=== PATIENT | male | born 1995 | race Caucasian/White ===

== ENCOUNTER 2020-11-21 09:45 | Emergency (ER) | payer OTHER, SELFPAY ==
[2020-11-21 09:51] VITALS: BP 147/86; PULSE 72; RESP 14; TEMP 36.5; O2SAT 98; BMI 43.8
--- NOTE | 2020-11-21 10:00 | XR_ITS ---
WS: [id number] Portable AP upright chest, 11/21/2020 Clinical Data: cp/sob Comparison: None. Findings: No nodules, masses or effusions are seen. The heart is normal. The pulmonary vascularity is not increased. No pneumonia or pneumothorax is seen. Monitor leads are on the chest wall. XR/XR chest 1V portable [id number] Impression: Negative chest.
--- NOTE | 2020-11-21 10:00 | ED_ITS ---
HPI - Chest Pain General: Chief Complaint: Chest Pain Stated Complaint: CHEST/RIB PAIN, PAIN DOWN L ARM Time Seen by Provider: 11/21/20 09:51 History of Present Illness: HPI narrative: Patient is a 25-year-old male comes to the ED with episode of chest pain and shortness of breath. Episode occurred just prior to arrival. 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 He started having pain on inspiration as well. diaphoretic during that time as well. Denies any history of heart issues, DVT or blood clots. Patient says symptoms have resolved before coming to the ED. Denies any fever, cough, hemoptysis, abdominal pain, nausea/vomiting, bladder or bowel symptoms. Patient did say that he started a diet and workout regimen within the last week. He also has been taking a daily energy supplement for the past week, but says he did not take it this morning like he usually does. Associated symptoms: Reports dyspnea; Deny abdominal pain, fever(s), nausea, palpitations or vomiting Review of Systems Const: Denies: fever(s), chills or fatigue Eyes: Denies: change in vision or eye discomfort ENMT: Denies: throat pain, odynophagia, nasal discharge or nasal congestion Card: Reports: chest pain (episode of left upper chest pain); Denies: palpitations, edema, swelling of feet/ankles, dyspnea on exertion or orthopnea Resp: Reports: dyspnea and pain on inspiration (left side); Denies: productive cough or non-productive cough GI: Denies: abdominal pain, nausea, vomiting, diarrhea, constipation or hematochezia : Denies: flank pain, difficulty urinating, dysuria or hematuria Musc: Denies: neck pain, back pain or extremity swelling Skin/Breast: Denies: rash or new lesions Neuro: Denies: headache(s), numbness in extremities or weakness in extremities PFSH ED PFSH: Social History Smoking and tobacco status: never smoked Physical Exam Const: COMMON NORMALS: no acute distress, patient oriented x3 and alert GENERAL APPEARANCE: cooperative and comfortable HENMT: COMMON NORMALS: normocephalic HEAD & SCALP: normocephalic MOUTH: Normal oral and palatal mucosa present THROAT: posterior oropharynx normal and uvula midline Neck/C-Spine: COMMON NORMALS: supple GENERAL: Yes normal visual inspection Chest: CHEST: Yes tenderness pectoral muscle on the left with point tenderness laterally Resp: COMMON NORMALS: normal respiratory effort, No retractions, No use of accessory muscles and clear to auscultation bilaterally EFFORT & INSPECTION: Yes able to speak in complete sentences, No tachypneic, No respiratory distress and No labored AUSCULTATION: clear to auscultation bilaterally Cardio: COMMON NORMALS: regular rate, regular rhythm, S1 normal heart sound present, S2 normal heart sound present, No gallops present (Cardio), No clicks present (Cardio), No murmurs present (Cardio) and Peripheral pulses 2+ throughout RATE: regular rate RHYTHM: regular rhythm HEART SOUNDS: S1 normal heart sound present and S2 normal heart sound present PERIPHERAL PULSES: Peripheral pulses 2+ throughout GI: COMMON NORMALS: Normal to inspection, nondistended, normoactive bowel sounds present, Soft to palpation, non-tender and no masses PALPATION: Yes Soft to palpation : COMMON NORMALS: Yes no CVA tenderness BLADDER/KIDNEY EXAM: Yes no CVA tenderness Back/Pelvis: COMMON NORMALS: no CVA tenderness Extremity: COMMON NORMALS: normal to inspection and no pedal edema Neuro: COMMON NORMALS: patient oriented x3 and moves all extremities SENSORIUM/ORIENTATION: Yes alert Skin: GENERAL SKIN EXAM: dry skin Course ED course: Wells criteria score for PE was 0?very low risk for chance of PE. Vital Signs: Vital signs: Vital Signs Temperature 97.7 F 11/21/20 09:51 Pulse Rate 70 11/21/20 11:04 Respiratory Rate 19 H 11/21/20 11:04 Blood Pressure 138/84 11/21/20 11:04 Pulse Oximetry 98 11/21/20 11:04 MDM - Chest Pain MDM Narrative: Medical decision making narrative: Patient is a 25-year-old male comes to the ED with left upper chest pain. Symptoms had resolved upon arrival to the ED. Patient did say he started working out again approximately a week ago and has been taking a daily energy supplement. Patient appears to be healthy and showing no signs of any acute distress or pain. He has some left pectoral muscle tenderness upon palpation of the chest. No other significant exam findings. Wells score criteria 0 which puts him at a very low risk for any chance of PE. CBC and CMP were unremarkable. Chest x-ray showed no acute findings. EKG showed normal sinus rhythm with no acute OH findings and troponin negative. Patient diagnosed with musculoskeletal chest pain and discharged home. Return to ED precautions given. Follow-up with PCP in 7 to 10 days. Take [id number] ibuprofen for pain. Patient understood agree with plan. Lab Data: Attestation: I reviewed the patient's lab results. Labs: Lab Results 11/21/20 11/21/20 11/21/20 Range/Units 10:17 10:17 10:17 WBC 7.0 (4.0-10.0) 10^3/ uL RBC 5.35 H (4.1-5.3) 10^6/u L Hgb 15.0 (11.7-16.6) g/dL Hct 45.4 (42.0-52.0) % MCV 84.9 (80-94) fL MCH 28.0 (28.0-34.0) pg MCHC 33.0 (30.0-36.0) g/dL RDW 12.7 (12.1-15.1) % Plt Count 337 (130-400) 10^3/c mm MPV 9.4 (7.4-10.4) fL Neut % (Auto) 60.3 % Lymph % (Auto) 30.3 % [place] % (Auto) 7.4 % Eos % (Auto) 1.0 % Baso % (Auto) 0.7 % Neut # (Auto) 4.25 (1.8-7.7) 10^3/u L Lymph # (Auto) 2.1 (0.8-4.8) 10^3/u L [place] # (Auto) 0.5 (0.2-0.9) 10^3/u L Eos # (Auto) 0.1 (0.0-0.8) 10^3/u L Baso # (Auto) 0.1 (0.0-0.1) 10^3/u L Nucleated RBC % (a uto) 0 % Nucleated RBCs # 0.0 /100WBC Sodium 137 (136-145) mmol/L Potassium 4.8 (3.5-5.1) mmol/L Chloride 101 (98-107) mmol/L Carbon Dioxide 27 (22-29) mmol/L Anion Gap 13.8 (5-19) BUN 19 (6-20) mg/dL Creatinine 0.9 (0.7-1.2) mg/dL GFR Calculation 103.7 (90-130) mL/min Glucose 91 (65-115) mg/dL Calculated Osmolal ity 286 (285-295) mOsm/k g Calcium 9.9 (8.5-10.5) mg/dL Total Bilirubin 0.6 (0.15-1.2) mg/dL AST 26 (0-40) U/L ALT 28 (0-41) U/L Alkaline Phosphata se 94 (40-130) IU/L Troponin T Gen 5 n g/L 11 (0-15) ng/L Total Protein 7.8 (6.6-8.7) g/dL Albumin 5.1 (3.5-5.2) g/dL Globulin 2.7 (1.3-4.6) g/dL Imaging Data^: CXR: Attestation: I personally reviewed and interpreted this imaging study as follows: Radiologist's impression: [address] [address] XRay Report Signed Patient: Flaco Carranza Unit #: [id number] : 1995 Age/Sex: 25 / M ADM Date: 11/21/20 Loc: ER Room/Bed: Attending Dr: Ordering Provider/Ordering MD: Trent Soto Date of Service: 11/21/20 Procedure(s): XR chest 1V portable [id number] Accession Number(s): [id number] Report Number: [id number] WS: [id number] Portable AP upright chest, 11/21/2020 Clinical Data: cp/sob Comparison: None. Findings: No nodules, masses or effusions are seen. The heart is normal. The pulmonary vascularity is not increased. No pneumonia or pneumothorax is seen. Monitor leads are on the chest wall. XR/XR chest 1V portable [id number] Impression: Negative chest. Dictated By: Anabel Triplett MD Signed By: Anabel Triplett MD Signed Date/Time: 11/21/20 1011 DD/ 1010 EKG Data^: EKG 1: Attestation: I personally reviewed and interpreted this EKG as follows: EKG interpretation date: 11/21/20 Interpretation: Normal sinus rhythm, 64 bpm, no ST segment elevation or depression seen. No acute signs of OH. Discharge Plan Discharge Patient Disposition: Home Clinical Impression: Musculoskeletal chest pain Condition: Stable Prescriptions: No Action No Known Home Medications RF: 0 Discharge Orders: Discharge ED (Routine); Ordered 11/21/20 Ordered By: Trent Soto Discharge Diet: Regular Discharge Activity: Resume usual activity Patient Instructions: Musculoskeletal Pain (ED), Noncardiac Chest Pain (ED) Activity Restrictions/Additional Instructions: Follow-up with medical provider as directed in 7 to 10 days for reevaluation. Take [id number] ibuprofen or Tylenol for any pain. Return to the ER or your medical provider if condition worsens. Please read and understand discharge instructions. If any questions, please ask. Coding Level of Care Code ED Community Development Technician for Chg Fwd Exam Comprehensive
[2020-11-21 10:33] LABS: Basophils # 0.1 10^3/uL (0.0-0.1); Basophils % 0.7 %; Eosinophils # 0.1 10^3/uL (0.0-0.8); Hematocrit 45.4 % (42.0-52.0); Lymphocytes # 2.1 10^3/uL (0.8-4.8); Lymphocytes % 30.3 %; Mean Corpuscular Volume 84.9 fL (80-94); Mean Platelet Volume 9.4 fL (7.4-10.4); Monocytes # 0.5 10^3/uL (0.2-0.9); Monocytes % 7.4 %; Neutrophils # 4.25 10^3/uL (1.8-7.7); Neutrophils % 60.3 %; Nucleated Red Blood Cells % 0 %; Platelet Count 337 10^3/cmm (130-400); Red Blood Count 5.35 10^6/uL (4.1-5.3); Red Cell Distribution Width 12.7 % (12.1-15.1)
[2020-11-21 10:50] LABS: Alanine Aminotransferase 28 U/L (0-41); Albumin Level 5.1 g/dL (3.5-5.2); Alkaline Phosphatase 94 IU/L (40-130); Anion Gap 13.8 (5-19); Aspartate Amino Transferase 26 U/L (0-40); Blood Urea Nitrogen 19 mg/dL (6-20); Calcium 9.9 mg/dL (8.5-10.5); Carbon Dioxide 27 mmol/L (22-29); Chloride 101 mmol/L (98-107); Globulin 2.7 g/dL (1.3-4.6); Glomerular Filtration Rate 103.7 mL/min (90-130); Glucose 91 mg/dL (65-115); Osmolality Calculated 286 mOsm/kg (285-295); Potassium 4.8 mmol/L (3.5-5.1); Sodium 137 mmol/L (136-145); Total Bilirubin 0.6 mg/dL (0.15-1.2); Total Protein 7.8 g/dL (6.6-8.7)
[2020-11-21 10:56] LABS: Troponin T (5th) Once 11 ng/L (0-15)
[2020-11-21 11:04] VITALS: BP 138/84; PULSE 70; RESP 19; O2SAT 98
== END 2020-11-21 11:06 | disposition home or self-care (01) ==
PROVIDERS: Emergency Provider Physician Assistant
DX: R07.89 Other chest pain (principal)
CPT/HCPCS: 12345; 71045; 80053; 84484; 85025; 99282; 99283

== ENCOUNTER → 2025-05-03 11:40 | Outpatient (BNVA) | payer OTHER, SELFPAY | PROVIDERS: Visit Provider Registered Nurse Neonatal Intensive Care | DX: M20.11 Hallux valgus (acquired), right foot (principal) | CPT/HCPCS: 73630 ==